=== PATIENT | female | born 1975 | race Caucasian/White ===

== ENCOUNTER → 2017-02-19 | Outpatient (CLI) | payer BC ==
[~2017-02-19] MED LIST: CYMBALTA60 MG PO; FLEXERIL10 MG PO; LORTAB 5-325 M1 EACH PO; NAPROSYN500 MG PO; PEPCID20 MG PO; PERCOCET 5/31 TABLET PO; PRILOSEC40 MG PO
== END | disposition home or self-care (01) ==
LOC: NUC 08:02
DX: R10.31 Right lower quadrant pain (principal); R10.11 Right upper quadrant pain
CPT/HCPCS: 78227; A9537; J2805

== ENCOUNTER 2017-09-25 10:21 | Day surgery (SDC) | payer BC ==
[~2017-09-25] VITALS: Ht 157.5 cm; Wt 64.4 kg
[~2017-09-25 10:21] MED LIST changes: +OMEPRAZOLE40 M1 PO; +ULTRAM50 MG PO
[2017-09-25 10:48] VITALS: BP 127/78
[2017-09-25] MEDS ORDERED: NORCO 5/3251 TABLET PO (15:49)
[2017-09-25 16:25] VITALS: BP 119/66
[2017-09-25 17:20] VITALS: BP 112/67
[2017-09-25 18:22] VITALS: BP 125/64
== END 2017-09-25 18:45 | disposition home or self-care (01) ==
LOC: SDC 10:21
DX: K81.1 Chronic cholecystitis (principal); K21.0 Gastro-esophageal reflux disease with esophagitis; F41.1 Generalized anxiety disorder; K22.70 Barrett's esophagus without dysplasia; F17.210 Nicotine dependence, cigarettes, uncomplicated; Z88.2 Allergy status to sulfonamides
CPT/HCPCS: 74300; 88304; C1769; J0330; J1100; J1170; J1885; J2250; J2405; J2710; J2765; J3010; Q0175; S0020; S0074